=== PATIENT | female | born 1970 | race Caucasian/White ===

== ENCOUNTER → 2019-07-01 08:55 | Outpatient (BNVA) | payer OTHER, SELFPAY | PROVIDERS: PCP Nurse Practitioner Family; Visit Provider Family Medicine | DX: R68.89 Other general symptoms and signs (principal) | CPT/HCPCS: 87804 ==

== ENCOUNTER 2020-03-11 20:00 | Outpatient (CLI) | payer OTHER, SELFPAY | END 2020-03-11 20:01 | disposition home or self-care (01) | LOC: SLEEP 03-12 09:27 | PROVIDERS: PCP Nurse Practitioner Family; Visit Provider Nurse Practitioner Family | DX: G47.33 Obstructive sleep apnea (adult) (pediatric) (principal) | CPT/HCPCS: 95810 ==

== ENCOUNTER 2020-04-08 20:00 | Outpatient (CLI) | payer OTHER, SELFPAY | END 2020-04-08 20:01 | disposition home or self-care (01) | LOC: SLEEP 04-09 09:12 | PROVIDERS: PCP Nurse Practitioner Family; Visit Provider Nurse Practitioner Family | DX: G47.33 Obstructive sleep apnea (adult) (pediatric) (principal) | CPT/HCPCS: 95811 ==

== ENCOUNTER → 2020-12-14 08:44 | Outpatient (BNVA) | payer OTHER, SELFPAY | PROVIDERS: PCP Nurse Practitioner Family; Visit Provider Nurse Practitioner Family | DX: I10 Essential (primary) hypertension (principal) | CPT/HCPCS: 80053; 80061 ==

== ENCOUNTER → 2021-12-15 10:01 | Outpatient (BNVA) | payer OTHER, SELFPAY | PROVIDERS: PCP Nurse Practitioner Family; Visit Provider Nurse Practitioner Family | DX: J06.9 Acute upper respiratory infection, unspecified (principal) | CPT/HCPCS: 87400; 87426 ==

== ENCOUNTER → 2022-01-09 08:38 | Outpatient (BNVA) | payer OTHER, SELFPAY | PROVIDERS: PCP Nurse Practitioner Family; Visit Provider Nurse Practitioner Family | DX: I10 Essential (primary) hypertension (principal); F41.1 Generalized anxiety disorder; Z91.09 Other allergy status, other than to drugs and biological substances | CPT/HCPCS: 80053; 80061 ==

== ENCOUNTER → 2022-09-15 08:37 | Outpatient (BNVA) | payer OTHER, SELFPAY | PROVIDERS: PCP Nurse Practitioner Family; Visit Provider Nurse Practitioner Family | DX: I10 Essential (primary) hypertension (principal); F41.1 Generalized anxiety disorder | CPT/HCPCS: 80053; 80061 ==

== ENCOUNTER → 2023-01-16 08:17 | Outpatient (BNVA) | payer OTHER, SELFPAY | PROVIDERS: PCP Nurse Practitioner Family; Visit Provider Nurse Practitioner Family | DX: J32.9 Chronic sinusitis, unspecified (principal) | CPT/HCPCS: 87400; 87426 ==

== ENCOUNTER → 2023-10-10 16:15 | Outpatient (BNVA) | payer OTHER, SELFPAY | PROVIDERS: PCP Nurse Practitioner Family; Visit Provider Nurse Practitioner Family | DX: I10 Essential (primary) hypertension (principal); N63.20 Unspecified lump in the left breast, unspecified quadrant | CPT/HCPCS: 80053; 80061; 84443 ==

== ENCOUNTER 2023-11-15 09:00 | Outpatient (CLI) | payer OTHER, SELFPAY ==
--- NOTE | 2023-11-15 08:25 | MM_ITS ---
WS: [id number] BILATERAL 3D TOMOSYNTHESIS DIGITAL DIAGNOSTIC MAMMOGRAPHY WITH CAD CLINICAL INFORMATION: 2 MM NODULE L BREAST HISTORY: LEFT breast nodule COMPARISON: None currently available. Addendum will be issued when outside studies available. TECHNIQUE: Bilateral CC, MLO, and ML views. FINDINGS: Scattered fibroglandular densities bilaterally. Palpable marker LEFT breast near the nipple with unde rlying nodularity in this area. Ultrasound is pending. Incidental calcifications LEFT breast. Several nodular densities subareolar RIGHT breast. Ultrasound of this area is pending. ULTRASOUND BREAST LEFT TECHNIQUE: Ultrasound left breast focused area of concern. CLINICAL INFORMATION: 2 MM NODULE L BREAST FINDINGS: Ultrasound LEFT breast 9 o'clock position 1 cm from the nipple. There is a hypoechoic well-circumscri bed nodule in the subcutaneous soft tissues measuring 9 x 3 x 8 mm with a tiny amount of internal vas cularity. This is indeterminant but based on location may represent a complex benign sebaceous cyst. Ultrasound-guided biopsy/aspiration can be attempted although there is a risk of rupture and concurre nt infection. Surgical excision could also be performed instead. Ultrasound subareolar RIGHT breast. Prominent ductal ectasia in the subareolar region RIGHT breast. T here is an intraductal polypoid lesion suspicious for papilloma. Recommend ultrasound-guided biopsy o f this lesion. Lesion measures 1.5 x 0.6 x 1.4cm MM/[place] [id number] IMPRESSION: BI-RADS: 4-Suspicious Finding-Biopsy Should Be Considered FOLLOW UP: US Guided Biopsy Recommended Recommend ultrasound-guided biopsy of the intraductal RIGHT breast lesion. Ultrasound-guided biopsy or aspiration could also be performed of the shallow L EFT breast lesion at that time. Alternatively surgical excision could be perfor med instead. See discussion above.
== END 2023-11-15 09:01 | disposition home or self-care (01) ==
PROVIDERS: PCP Nurse Practitioner Family; Visit Provider Nurse Practitioner Family
DX: N63.24 Unspecified lump in the left breast, lower inner quadrant (principal); R92.323 Mammographic fibroglandular density, bilateral breasts; R92.1 Mammographic calcification found on diagnostic imaging of breast; N60.41 Mammary duct ectasia of right breast; D24.1 Benign neoplasm of right breast
CPT/HCPCS: 76642; 77062; G0279

== ENCOUNTER 2023-11-28 13:27 | Outpatient (CLI) | payer OTHER, SELFPAY | END 2023-11-28 13:28 | disposition home or self-care (01) | LOC: RAD 13:27 | PROVIDERS: PCP Nurse Practitioner Family; Visit Provider Nurse Practitioner Family | DX: R92.8 Other abnormal and inconclusive findings on diagnostic imaging of breast (principal) | CPT/HCPCS: 19083; 88305 ==

== ENCOUNTER 2024-01-10 08:40 | Day surgery (SDC) | payer OTHER, SELFPAY ==
[2024-01-10] VITALS (12 sets, daily range): BP systolic 133–176; BP diastolic 59–89; PULSE 69–87; RESP 18; TEMP 36.2–36.6; O2SAT 90–97; BMI 75.5
--- NOTE | 2024-01-10 09:06 | P.HPUD_ITS ---
Surgery/Procedure H&P Update DATE OF PROCEDURE: January 10, 2024 DATE H&P PERFORMED: 12/13/23 H&P UPDATE INFORMATION: I have reviewed H&P completed within last 30 days, I have examined patient prior to procedure and No changes to prior documentation PLANNED PROCEDURE: Operation Date: 01/10/24 10:45 Proposed Procedures p Excision of Breast Mass Needle Localizat 24925,[id number], 33107, R22.9, D24.1, N6 3.23(Left) - Gerardo Smith DO
[2024-01-10] MEDS: sodium chloride 0.9% 1,000 ML 30 ML IV (09:30)
--- NOTE | 2024-01-10 09:58 | ANES.PREANE2 ---
Pre-Anesthetic Assessment Height/Weight: Height 5 ft 1 in Weight 400 lb Temp Pulse BP Pulse Ox O2 Del Method 98 F 69 176/89 97 Room Air 01/10/24 09:23 01/10/24 09:23 01/10/24 09:23 01/10/24 09:23 01/10/24 09:28 Operation Date: 01/10/24 10:45 Proposed Procedures p Excision of Breast Mass Needle Localizat 60868,91763, 26887, R22.9, D24.1, N63.23(Left) - Gerardo Smith DO Last intake: Intake Last Liquid Date 01/09/24 Last Liquid Time 20:00 Last Solid Date 01/09/24 Last Solid Time 20:00 Anesthetic Plan ASA status: 3 Other: No prior issues with anesthesia NPO since yesterday History of hypertension on hydrochlorothiazide and atenolol Denies any pulmonary issues BMI 75 Medications/Allergies Home Medications Medication Instructions Recorded Confirmed Last Taken Type fluticasone propionate 50 2 spray intranasal DAILY #16 grams 10/10/23 01/09/24 Unknown Rx mcg/actuation nasal spray,suspension (Flonase Allergy Relief) atenolol 25 mg tablet 25 mg PO BID 01/09/24 01/10/24 01/10/24 06:15 History cetirizine 10 mg tablet (Zyrtec) 10 mg PO DAILY 01/09/24 01/09/24 01/09/24 History citalopram 40 mg tablet 40 mg PO DAILY 01/09/24 01/09/24 01/09/24 History esomeprazole magnesium 20 mg 10 mg PO DAILY 01/09/24 01/09/24 01/09/24 History capsule,delayed release (Nexium 24HR) hydrochlorothiazide 12.5 mg tablet 12.5 mg PO DAILY 01/09/24 01/09/24 01/09/24 History Allergies Allergy/AdvReac Type Severity Reaction Status Date / Time No Known Allergies Allergy Verified 01/10/24 09:16 Current Medications Generic Name Dose Route Start Last Admin Trade Name Freq PRN Reason Stop Dose Admin Sodium Chloride 1,000 mls @ 30 mls/hr 01/10/24 09:00 01/10/24 09:30 Sodium Chloride 0.9% IV 01/11/24 08:59 30 mls/hr .Q24H COLLINS Administration PFSH Anesthesia Medical History Benign essential HTN MOE (generalized anxiety disorder) Surgical History H/O: hysterectomy not do to cancer Social History Smoking and tobacco/nicotine status: never used tobacco/nicotine Alcohol intake: current Alcohol intake frequency: 0-2 Drinks per Day Alcohol type: beer Substance/Drug Use: never Data Anesthesia Cardiac Studies: No Data to Display
[2024-01-10] MEDS: ceFAZolin 3,000 mg SDV 3000 MG IVP (11:07)
--- NOTE | 2024-01-10 12:02 | P.OP_ITS ---
Operative Report Date of procedure: January 10, 2024 Pre-op diagnosis: Right breast papilloma Subcutaneous mass left breast Post-op diagnosis: same Procedure done: Right breast lumpectomy with needle insertion and radiologic correlation Excision of subcutaneous mass left breast 1.5 cm Implants: None Specimens removed/disposition: Excision of subcutaneous mass left breast Right breast lumpectomy Surgeon: Gerardo Smith DO Anesthesia: General Estimated blood loss (mL): 5 Complications: None apparent Brief History: This is a very pleasant 53-year-old female who presented to my office with a diagnosed papilloma of her right breast. She also had a subcutaneous mass of her left breast at her areola. Right breast lumpectomy and excision of subcutaneous mass left breast are indicated. The risks and benefits were explained and documented. Procedure: The patient was brought back into the operating room. She was placed on the OR table in the supine position. General endotracheal intubation was achieved by the department anesthesia. The bilateral breasts were inspected prepped and draped in usual sterile fashion. A timeout was performed. All present were in agreement. After localizing with 2% lidocaine with epinephrine, A 1.5 cm elliptical incision was made at the edge of the left areola over the subcutaneous mass illa. Dissection was carried down with electrocautery. The skin and subcutaneous mass were removed en bloc and put in formalin. Dermis was approximated with 3-0 Vicryl in an interrupted fashion. Skin was closed with running 4-0 Monocryl in a subcuticular fashion. Dermabond was applied. Attention was then brought to the right breast. Radiology had previously placed a wire to aid in locating the papilloma which was not easily palpable. After localizing with 2% lidocaine with epinephrine, a 10 blade scalpel was used to ma ke a semicircular incision around the right half of her right areola. Electrocautery was used to carve out a lumpectomy specimen. The entire needle was included. Specimen was taken out en bloc. Short stitch marked superior. Long stitch cardoza lateral and double stitch marked anterior. Hemostasis was achieved with electrocautery. Specimen was sent to radiology who said the clip and wire were surrounded by adequate tissue margins. The dermis was approximated with 3-0 Vicryl. The skin was closed with 4-0 Vicryl in a subcuticular and running fashion. Dermabond was applied. Patient tolerated the procedure well.
[2024-01-10] MEDS: lidocaine-epi 2% PF 1:200,000 20 mL SDV 8 ML XX (12:19)
--- NOTE | 2024-01-10 14:59 | ANE.PACU2 ---
Inpatient post-anesthesia follow up: Airway intact: Yes Vital signs: Temperature 97.2 F Pulse Rate 75 Respiratory Rate 18 Blood Pressure 143/65 Pulse Oximetry 91 Oxygen Delivery Me thod Nasal Cannula Oxygen Flow Rate 2 Fraction of Inspir ed Oxygen Hydration adequate: Yes Nausea and vomiting: No Pain level: 1 Mental status: Baseline
== END 2024-01-10 14:50 | disposition home or self-care (01) ==
PROVIDERS: PCP Nurse Practitioner Family; Visit Provider Surgery
PROC: (CPT 19120; principal; 2024-01-10 10:35)
DX: D24.2 Benign neoplasm of left breast (principal); D24.1 Benign neoplasm of right breast; I10 Essential (primary) hypertension; F41.1 Generalized anxiety disorder
CPT/HCPCS: 19120; 19301 ×2; 19285; 88307; 88342; C1889; J0330; J0690; J1100; J2405; J2704; J3010; J7030

== ENCOUNTER → 2024-07-07 08:46 | Outpatient (BNVA) | payer OTHER, SELFPAY | PROVIDERS: PCP Nurse Practitioner Family; Visit Provider Nurse Practitioner Family | DX: I10 Essential (primary) hypertension (principal) | CPT/HCPCS: 80053; 80061; 84443 ==

== ENCOUNTER → 2025-02-17 07:24 | Outpatient (BNVA) | payer OTHER, SELFPAY | PROVIDERS: PCP Nurse Practitioner Family; Visit Provider Nurse Practitioner Family | DX: R68.89 Other general symptoms and signs (principal) | CPT/HCPCS: 87400; 87426 ==